=== PATIENT | male | born 1960 | race Caucasian/White ===

== ENCOUNTER 2016-08-23 20:24 | Emergency (ER) | payer OTHER ==
[~2016-08-23] VITALS: Ht 190.5 cm; Wt 77.3 kg
[2016-08-23 20:25] VITALS: BP 130/64; PULSE 80; RESP 15; O2SAT 97
[2016-08-23 20:45] VITALS: BP 127/67; PULSE 78; RESP 18; O2SAT 97
[2016-08-23 21:00] VITALS: BP 127/68; PULSE 76; RESP 18; O2SAT 97
[2016-08-23 21:30] VITALS: BP 121/84; PULSE 72; RESP 18; O2SAT 98
[2016-08-23 22:09] LABS: BASOPHILS % (AUTO) 0.4 % (0-3); EOSINOPHILS % (AUTO) 1.8 % (0-5); MONOCYTES % (AUTO) 7.5 % (4-12); Mean Corpuscular Hemoglobin 29.9 pg (27.0-35.0); Mean Corpuscular Volume 88.3 fL (81-100); NEUTROPHILS % (AUTO) 61.7 % (40-74); Platelet Count 299 bil/L (150-400)
--- NOTE | 2016-08-23 22:14 | ED.REPORT ---
HPI-Chest Pain 40 and Over Date of Service August 23, 2016 ED Provider: Benoit Stein MD 55 year old male with a history of pneumothorax and Marfan Syndrome who presents to the ER via police from residential with one hour of sharp R sided chest pain. Pt denies any injury and was laying at rest at onset of pain. Pt denies fever, cough, vomiting and diarrhea. Nursing Notes Stated Complaint: CHEST PAIN Chief Complaint: Chest Pain Nursing Notes Reviewed: Yes Allergies: Coded Allergies: No Known Allergies (Verified , 08/23/16) Uncoded Allergies: SOAPS WITH ADDITIVES; IE spring (Allergy, Mild, HIVES AND USES BENADRYL TO STOP IT;, 02/27/04) General Time Seen by MD: 22:13 Chief Complaint Chest pain Hx Obtained From: Patient Arrived By: Police, Walk-in Sudden in Onset?: Yes Onset Occurred: 1 - 4 hours ago Symptom Duration: Since onset Location: : Chest left Quality: Painful Severity: Current: Moderate Associated with: Denies: Shortness of Breath, Vomiting Similar Sx Previous: Yes Risk Factors )( CAD Risk Stratification Risk factors reviewed )( TAD Risk Stratification Risk factors reviewed )( PE Risk Stratification Risk factors reviewed Past Medical History Past Medical History Marfans Syndrome Pneumothorax Denies: Asthma, Diabetes mellitus Past Surgical History Lung surgery for pneumothorax Smoking History Former Smoker Review of Systems Basic Review of Systems Eyes: Vision NL, No discharge ENT: Hearing NL, No pain, No nasal congestion, No pharyngeal pain Constitutional: Denies: Fever Respiratory: Denies: Non-productive cough, Shortness of breath Cardiovascular: Reports: Chest pain GI: Denies: Abdominal pain, Diarrhea, Vomiting Musculoskeletal: Denies: Back pain Neurologic: Denies: Change LOC, Headache Complete sys rev & neg: except as marked. Physical Exam Initial Vital Signs Vital Signs (First) Date Time Temp Pulse Resp B/P Pulse Ox O2 Delivery O2 Flow Rate FiO2 08/23/16 20:25 36.8 80 15 130/64 97 Room Air Initial VS: Reviewed Head / Eyes: Atraumatic, Normocephalic, PERRL ENT: Mucous membranes moist, Conjunctiva normal, No scleral icterus Neck: Supple, Non-tender, Full range of motion Extremities: Vascular intact, Neuro intact, No swelling, No tenderness Skin: Warm, Dry, No cyanosis Neurologic: Alert, Oriented, Nonfocal Psychiatric: Mood/affect normal, Behavior normal, Normal thought content General/Constitutional: Awake, Alert Respiratory / Chest: Breath sounds NL, Breath sounds = bilat, No respiratory distress, No rales, No rhonchi, No wheezing, No stridor Reproducable pain to palpation on R side Cardiovascular: Heart rate NL, Regular rhythm, Heart sounds NL, No murmurs, Peripheral circulation NL Abdomen: Soft, Non-tender, No distention Interpretation & Diagnostics Lab Results Interpretation Result Diagram: 08/23/16203408/23/162034 Test 08/23/16 20:35 White Blood Count 7.3th/mm3 (3.8-10.1) Red Blood Count 4.88mil/mm3 (4.40-5.80) Hemoglobin 14.6g/dL (13.8-17.2) Hematocrit 43.1% (41.0-50.0) Mean Corpuscular Volume 88.3fL (81-100) Mean Corpuscular Hemoglobin 29.9pg (27.0-35.0) Mean Corpuscular Hemoglobin Concent 33.9% (32.0-37.0) Red Cell Distribution Width 13.5% (12.3-15.4) Platelet Count 299bil/L (150-400) Neutrophils (%) (Auto) 61.7% (40-74) Lymphocytes (%) (Auto) 28.3% (14-46) Monocytes (%) (Auto) 7.5% (4-12) Eosinophils (%) (Auto) 1.8% (0-5) Basophils (%) (Auto) 0.4% (0-3) Sodium Level 141mEq/L (134-144) Potassium Level 4.1mEq/L (3.5-5.2) Chloride Level 103mEq/L (97-108) Carbon Dioxide Level 26mmol/L (18-29) Blood Urea Nitrogen 17mg/dL (6-24) Creatinine 0.79mg/dL (0.76-1.27) Estimat Glomerular Filtration Rate 107mL/min (>59) Glucose Level 119mg/dL (60-99) Calcium Level 9.0mg/dL (8.5-10.1) Magnesium Level 2.0mg/dL (1.6-2.6) Total Bilirubin 0.3mg/dL (0.0-1.2) Aspartate Amino Transf (AST/SGOT) 17U/L (0-50) Alanine Aminotransferase (ALT/SGPT) 16U/L (0-44) Alkaline Phosphatase 76U/L (25-150) Troponin T 0.010ug/L (0.0-0.011) Total Protein 6.6g/dL (6.4-8.4) Albumin 3.8g/dL (3.4-5.0) General Lab Results Interp 1: Labs reviewed ECG Interpretation Time: 20:30 Interpreted by: ED physician Normal ECG Interpretation: Normal rate (73), Normal sinus rhythm X-Ray Chest Interpretation Chest Xray Interpretation: Small basilar effusion on R. No pneumothorax. Small infiltrate L of the heart shadow. View: Portable, 1 view Interpretation / Wet Read by: Wet read ED physician Re-Eval/Medical Decision Time of Eval: 22:46 Re-Evaluation/Progress Note: Updated pt of labs, ECG and imaging results. Discussed plan for discharge and follow up. All questions addressed. Counseled Regarding: Diagnosis, Lab results, Need for follow-up, When/why to return to ED Discharge & Departure Primary Impression: Chest pain Chest pain type: unspecified Qualified Code: R07.9 - Chest pain, unspecified Disposition: Home Discharge Condition All VS Reviewed: Yes Condition: Stable Patient Instructions: Chest Pain (ED) Additional Instructions: There was no evidence of pneumothorax or any other dangerous cause for your pain identified. I believe the pain is musculoskeletal in nature, meaning, not from your internal organs such as heart or lungs. Motrin or Tylenol for pain. Follow up in a few days if the pain is does not improve. Fit for residential Referrals: NOPCP (PCP) Scribe Attestation Portions of this note were transcribed by Amada Murillo. I, (Dr. Stein) personally performed the history, physical exam and medical decision-making; I reviewed and confirmed the accuracy of the information in the transcribed note. Signed by: Amada Murillo. [place], 08/23/2016, [id number] Benoti Stein MD August 23, 2016 22:14 Amada Murillo August 23, 2016 22:35
[2016-08-23 22:19] LABS: TROPONIN T 0.01 ug/L (0.0-0.011)
[2016-08-23 22:30] VITALS: BP 114/75; PULSE 72; RESP 18; O2SAT 97
--- NOTE | 2016-08-24 08:39 | DRSVH ---
PROCEDURE: X-RAY CHEST ONE VIEW, PORTABLE ([id number]) INDICATIONS: CHEST PAIN TECHNIQUE: One view of the chest was acquired. COMPARISON: [facility], CR, CHEST 1VW, 11/16/2012, 21:46. [facility], CR, C HEST 2VW, 10/05/2007, 13:47. FINDINGS: Surgical changes and devices: None. Lungs and pleura: No pneumothorax. Stable appearance of right midlung nodule since 2007 therefore co nsidered benign. Blunting of the right costophrenic angle. Ill-defined opacity projecting in the left lung base Mediastinum: Mediastinal contours appear normal. Heart size is normal. Bones and chest wall: No suspicious bony lesions. Overlying soft tissues appear unremarkable. Mild lateral curvature of the spine and discogenic changes. IMPRESSION: Blunting of the right costophrenic angle in keeping with scarring/atelectasis verses trace pleural fl uid. This appears unchanged since 2007. 1.8 cm focal opacity involving the left lung base possibly brought pneumonia versus nodular scarring however cannot exclude malignant/metastatic pulmonary nodule and recommend followup chest radiographs in one month after treatment or, if high clinical suspicion, noncontrast chest CT could be performed . Findings personally telephoned and discussed with Dr. Barrow in the emergency department 08/24/16 at 0 837 hours Dictated by: Rusty Perez M.D. on 08/24/2016 at 8:30 Approved by: Rusty Perez M.D. on 08/24/2016 at 8:37
== END 2016-08-23 23:06 | disposition home or self-care (01) ==
LOC: SED 20:24
DX: R07.9 Chest pain, unspecified (principal); Z87.891 Personal history of nicotine dependence; Z88.8 Allergy status to other drugs, medicaments and biological substances